=== PATIENT | male | born 1950 | race Caucasian/White ===

== ENCOUNTER 2017-03-21 17:23 | Emergency (ER) | payer OTHER, BC ==
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
== END 2017-03-21 20:20 | disposition home or self-care (01) ==
LOC: CED 17:23
DX: S16.1XXA Strain of muscle, fascia and tendon at neck level, initial encounter (principal); S39.012A Strain of muscle, fascia and tendon of lower back, initial encounter; S70.02XA Contusion of left hip, initial encounter; S60.011A Contusion of right thumb without damage to nail, initial encounter; I10 Essential (primary) hypertension; V28.4XXA Motorcycle driver injured in noncollision transport accident in traffic accident, initial encounter; Y93.89 Activity, other specified; Y92.410 Unspecified street and highway as the place of occurrence of the external cause
CPT/HCPCS: 70450; 72072; 72100; 72125; 73080; 73140; 73502; 96372; 99284; J1885